=== PATIENT | male | born 1950 | race Caucasian/White ===

== ENCOUNTER 2022-09-30 07:38 | Inpatient (IN) ==
--- NOTE | 2022-08-29 09:39 | PAT Medication Instructions ---
Medication Instructions Date of Service August 29, 2022 Home Medications acetaminophen 325 mg tablet 325 mg PO QID PRN alpha lipoic acid 600 mg tablet 600 mg PO QAM atorvastatin 40 mg tablet 40 mg PO HS carvedilol 25 mg tablet 25 mg PO BID cholecalciferol (vitamin D3) 25 mcg (1,000 unit) tablet (Vitamin D3) 50 mcg PO QAM dutasteride 0.5 mg capsule 0.5 mg PO QPM empagliflozin 25 mg tablet (Jardiance) 25 mg PO QAM hydrochlorothiazide 25 mg tablet 25 mg PO QAM lisinopril 20 mg tablet 20 mg PO QAM metformin 500 mg tablet 1,000 mg PO BID omega-3 fatty acids 1,000 mg PO TID oxycodone 5 mg tablet 5 mg PO Q8H PRN rivaroxaban 20 mg tablet (Xarelto) 20 mg PO PM saw palmetto 1 dose PO TID tamsulosin 0.4 mg capsule 0.4 mg PO QPM STOP 3 days before surgery empagliflozin 25 mg tablet (Jardiance) 25 mg PO QAM ASK your prescriber and surgeon rivaroxaban 20 mg tablet (Xarelto) 20 mg PO PM STOP taking 2 weeks before surgery (or as soon as possible if surgery is within 2 weeks) alpha lipoic acid 600 mg tablet 600 mg PO QAM omega-3 fatty acids 1,000 mg PO TID saw palmetto 1 dose PO TID DO NOT take the morning of surgery cholecalciferol (vitamin D3) 25 mcg (1,000 unit) tablet (Vitamin D3) 50 mcg PO QAM hydrochlorothiazide 25 mg tablet 25 mg PO QAM lisinopril 20 mg tablet 20 mg PO QAM metformin 500 mg tablet 1,000 mg PO BID Take morning of surgery With a small sip of water, OTHERWISE NOTHING TO EAT OR DRINK AFTER MIDNIGHT: acetaminophen 325 mg tablet 325 mg PO QID PRN(if needed) carvedilol 25 mg tablet 25 mg PO BID oxycodone 5 mg tablet 5 mg PO Q8H PRN(if needed) Take evening before surgery acetaminophen 325 mg tablet 325 mg PO QID PRN(if needed) atorvastatin 40 mg tablet 40 mg PO HS carvedilol 25 mg tablet 25 mg PO BID dutasteride 0.5 mg capsule 0.5 mg PO QPM metformin 500 mg tablet 1,000 mg PO BID oxycodone 5 mg tablet 5 mg PO Q8H PRN(if needed) tamsulosin 0.4 mg capsule 0.4 mg PO QPM Other Notes If you have any questions please call us at [phone] or [phone] or [phone] or [phone]
--- NOTE | 2022-09-02 14:38 | Anesthesiology Consultation ---
Date of Service September 02, 2022 Assessment & Plan (1) Encounter for pre-operative examination: - check BSG am DOS. - will attempt to obtain most recent cardiology note and surgeon ordered clearance. Chart Review Chart Review: Pending: Refer to Additional Notes / Consult section and Patient seen in Pre Admission Testing Teaching & Discussion Pre-Anesthesia Teaching/Discussion Notes: Instructed NPO after midnight before surgery, except medications with 15 cc of water. Medication instructions provided according to the PAT guidelines. History Surgery Operation Date: 09/23/22 07:45 Proposed Procedures p L1-L2 Decompression, T12-L3 Fusion, L2 Hardware Removal, Spinal Cord Mon virgilio Pryor, Height/Weight Height: 5 ft 11 in Weight: 115.666 kg Allergies Allergy/AdvReac Type Severity Reaction Status Date / Time semaglutide [From Ozempic] AdvReac Gastrointestinal Verified 08/28/22 10:04 Upset Medications Home Medications Medication Instructions Recorded Confirmed Last Taken acetaminophen 325 mg tablet 325 mg PO QID PRN Pain 08/28/22 08/28/22 Unknown alpha lipoic acid 600 mg tablet 600 mg PO QAM 08/28/22 08/28/22 Unknown atorvastatin 40 mg tablet 40 mg PO HS 08/28/22 08/28/22 Unknown carvedilol 25 mg tablet 25 mg PO BID 08/28/22 08/28/22 Unknown cholecalciferol (vitamin D3) 25 50 mcg PO QAM 08/28/22 08/28/22 Unknown mcg (1,000 unit) tablet (Vitamin D3) dutasteride 0.5 mg capsule 0.5 mg PO QPM 08/28/22 08/28/22 Unknown empagliflozin 25 mg tablet 25 mg PO QAM 08/28/22 08/28/22 Unknown (Jardiance) hydrochlorothiazide 25 mg tablet 25 mg PO QAM 08/28/22 08/28/22 Unknown lisinopril 20 mg tablet 20 mg PO QAM 08/28/22 08/28/22 Unknown metformin 500 mg tablet 1,000 mg PO BID 08/28/22 08/28/22 Unknown omega-3 fatty acids 1,000 mg PO TID 08/28/22 08/28/22 Unknown oxycodone 5 mg tablet 5 mg PO Q8H PRN Pain 08/28/22 08/28/22 Unknown rivaroxaban 20 mg tablet (Xarelto) 20 mg PO PM 08/28/22 08/28/22 Unknown saw palmetto 1 dose PO TID 08/28/22 08/28/22 Unknown tamsulosin 0.4 mg capsule 0.4 mg PO QPM 08/28/22 08/28/22 Unknown insulin detemir U-100 100 unit/mL 34 unit subcut HS 09/02/22 09/02/22 Unknown (3 mL) subcutaneous pen (Levemir FlexPen) Past Medical History Medical History (Updated 09/02/22 @ 14:57 by Carmen Jimenez PA-C) Atrial fibrillation on Xarelto. Follows with Dr. Santacruz BPH (benign prostatic hyperplasia) CKD (chronic kidney disease), stage I following with [facility] DM type 2 (diabetes mellitus, type 2) IDDM History of cardioversion History of DVT (deep vein thrombosis) RLE x 2. > 10 years ago. dx'd protein S def. on xarelto History of migraine HLD (hyperlipidemia) [place] (hard of hearing) HTN (hypertension) Protein S deficiency Sleep apnea CPAP-compliant Spinal stenosis Urine protein increased Patient denies h/o stroke, seizures, heart attack, heart failure, or blood transfusions. Exercise / Class Metabolic Activity II 4-5 Yardwork/Stairs/Walk up hill (denies chest discomfort or shortness of breath with 1 FOS) Past Family History Family History Other No family history of adverse response to anesthesia Past Surgical History Surgical History History of back surgery x 2 History of cataract surgery History of colonoscopy History of esophagogastroduodenoscopy (EGD) History of rotator cuff surgery Rt History of tonsillectomy Past Anesthesia History No Hx of Anesthesia Complications and No Family Hx of Anesthesia Complications History of PONV No Hx of PONV and No Hx of Motion Sickness Social History Smoking Status: Former smoker Do You Dip or Chew Tobacco: No (quit many years ago) Smoking End Date: many years ago Hx Alcohol Use: No Hx Substance Use: No substance use type: does not use Review of Systems Patient denies chest pain, shortness of breath, dyspnea on exertion, reflux, fever, chills, cough, wheezing, or palpitations. Physical Exam Vital Signs Vitals BP 170/85 P 76 TEMP 98.6 SP02 96% on RA RESP 18 Physical Full cervical extension range of motion without pain TMD 3.5 finger breadths Mallampati Score 2 Dentition: intact, denies chipped or loose teeth, caps/crowns, implants or bridges Lungs: normal respiratory effort. Clear throughout to auscultation, no adventitious breath sounds Cardiac: irregularly irregular rhythm, normal rate, no murmurs noted Carotid arteries: negative bruit bilat Lab Results Anesthesia Preop Results Results Anesthesia Widget: WBC 7.44 K/ul (4.8-10.8) 09/02/22 Hgb 18.0 g/dl (14.0-18.0) 09/02/22 Hct 51.5 % (42.0-52.0) 09/02/22 Plt 186 K/uL (130-400) 09/02/22 Na 139 mmol/L (136-145) 09/02/22 K 4.0 mmol/L (3.5-5.1) 09/02/22 Cl 100 mmol/L (98-107) 09/02/22 CO2 34 mmol/L (21-32) H 09/02/22 BUN 17 mg/dl (6-23) 09/02/22 Creat 1.04 mg/dl (0.6-1.4) 09/02/22 Glucose Level 81 mg/dl (70-99(Fasting)) 09/02/22 PT 12.4 Seconds (9.0-12.0) H 09/02/22 PTT 33.3 Seconds (21.0-31.0) H 09/02/22 INR 1.2 (0.9-1.1) H 09/02/22 Urine Color Yellow 09/02/22 Urine Appearance Clear (Clear) 09/02/22 Urine pH 7.5 (4.5-7.5) 09/02/22 Urine Specific [place] 1.030 (1.000-1.030) 09/02/22 Urine Protein 3+ (Negative) H 09/02/22 Urine Glucose (UA) 3+ (Negative) H 09/02/22 Urine Ketones Trace (Negative) H 09/02/22 Urine Blood Negative (Negative) 09/02/22 Urine Nitrite Negative (Negative) 09/02/22 Urine Bilirubin Negative (Negative) 09/02/22 Urine Urobilinogen Negative (Negative) 09/02/22 Urine Leukocyte Esterase Negative (Negative) 09/02/22 Urine WBC (Auto) 1-5 /hpf (0-5) 09/02/22 Urine RBC (Auto) 5-10 /hpf (0-4) H 09/02/22 Urine Hyaline Casts (Auto) 0 /lpf (0-5) 09/02/22 Urine Epithelial Cells (Auto) 5-10 /lpf (0-5) H 09/02/22 Urine Bacteria (Auto) Negative (Negative) 09/02/22 Blood Type O Negative 09/02/22 Antibody Screen NEGATIVE 09/02/22 Testing Laboratory Results A1c 6.5% 07/31/22 Electrocardiogram Date: 09/02/22 Afib, rate 76 bpm Left anterior fascicular block LVH with QRS widening Chest X-Ray Date: 09/02/22 The heart is enlarged noting atherosclerotic calcification of the thoracic aorta. The pulmonary vasculature is noncongested. Chronic interstitial thickening similar to previous. The lungs and pleural spaces are clear. There is no pneumothorax. The skeletal structures are osteopenic. The bony thorax appears intact. Degenerative change is noted in the thoracic spine. Fusion hardware is partially visualized in the lumbar region. IMPRESSION: Cardiomegaly with no active disease in the chest. Echocardiogram Date: 06/11/21 EF 55% Afib Mildly dilated LA Mildly thickened aortic valve, trileaflet COVID-19 Risk Screen Screening Information COVID-19 Screen Date: 09/02/22 Exposure 21 Days Family/Household +COVID Last 21 Days: No Exposure 10 Days Any COVID Exposure Last 10 Days: No Symptoms Last 10 Days Experienced COVID Sx Last 10 Days: No + COVID 0-90 Days COVID + in Last 0-90 Days: No
--- NOTE | 2022-09-02 14:47 | PAT Medication Instructions ---
Medication Instructions Date of Service September 02, 2022 Home Medications Medications acetaminophen 325 mg tablet 325 mg PO QID PRN Pain 08/28/22 [History Confirmed 08/28/22] alpha lipoic acid 600 mg tablet 600 mg PO QAM 08/28/22 [History Confirmed 08/28/22] atorvastatin 40 mg tablet 40 mg PO HS 08/28/22 [History Confirmed 08/28/22] carvedilol 25 mg tablet 25 mg PO BID 08/28/22 [History Confirmed 08/28/22] cholecalciferol (vitamin D3) 25 mcg (1,000 unit) tablet (Vitamin D3) 50 mcg PO QAM 08/28/22 [History Confirmed 08/28/22] dutasteride 0.5 mg capsule 0.5 mg PO QPM 08/28/22 [History Confirmed 08/28/22] empagliflozin 25 mg tablet (Jardiance) 25 mg PO QAM 08/28/22 [History Confirmed 08/28/22] hydrochlorothiazide 25 mg tablet 25 mg PO QAM 08/28/22 [History Confirmed 08/28/22] lisinopril 20 mg tablet 20 mg PO QAM 08/28/22 [History Confirmed 08/28/22] metformin 500 mg tablet 1,000 mg PO BID 08/28/22 [History Confirmed 08/28/22] omega-3 fatty acids 1,000 mg PO TID 08/28/22 [History Confirmed 08/28/22] oxycodone 5 mg tablet 5 mg PO Q8H PRN Pain 08/28/22 [History Confirmed 08/28/22] rivaroxaban 20 mg tablet (Xarelto) 20 mg PO PM 08/28/22 [History Confirmed 08/28/22] saw palmetto 1 dose PO TID 08/28/22 [History Confirmed 08/28/22] tamsulosin 0.4 mg capsule 0.4 mg PO QPM 08/28/22 [History Confirmed 08/28/22] Take morning of surgery With a small sip of water, OTHERWISE NOTHING TO EAT OR DRINK AFTER MIDNIGHT: Insulin Dependent Diabetic Patients * Test your blood sugar the morning of surgery * If Blood Sugar is GREATER THAN 150, take HALF of your regular dose of: * If Blood Sugar is LESS THAN 150, DO NOT TAKE ANY: Other Notes If you have any questions please call us at [phone] or [phone] or [phone] or [phone]
--- NOTE | 2022-09-02 14:56 | PAT Medication Instructions ---
Medication Instructions Date of Service September 02, 2022 Home Medications acetaminophen 325 mg tablet 325 mg PO QID PRN alpha lipoic acid 600 mg tablet 600 mg PO QAM atorvastatin 40 mg tablet 40 mg PO HS carvedilol 25 mg tablet 25 mg PO BID cholecalciferol (vitamin D3) 25 mcg (1,000 unit) tablet (Vitamin D3) 50 mcg PO QAM dutasteride 0.5 mg capsule 0.5 mg PO QPM empagliflozin 25 mg tablet (Jardiance) 25 mg PO QAM hydrochlorothiazide 25 mg tablet 25 mg PO QAM lisinopril 20 mg tablet 20 mg PO QAM metformin 500 mg tablet 1,000 mg PO BID omega-3 fatty acids 1,000 mg PO TID oxycodone 5 mg tablet 5 mg PO Q8H PRN rivaroxaban 20 mg tablet (Xarelto) 20 mg PO PM saw palmetto 1 dose PO TID tamsulosin 0.4 mg capsule 0.4 mg PO QPM insulin detemir U-100 100 unit/mL (3 mL) subcutaneous pen (Levemir FlexPen) 34 unit subcut HS STOP 3 days before surgery empagliflozin 25 mg tablet (Jardiance) 25 mg PO QAM ASK your prescriber and surgeon rivaroxaban 20 mg tablet (Xarelto) 20 mg PO PM STOP taking 2 weeks before surgery (or as soon as possible if surgery is within 2 weeks) alpha lipoic acid 600 mg tablet 600 mg PO QAM omega-3 fatty acids 1,000 mg PO TID saw palmetto 1 dose PO TID DO NOT take the morning of surgery cholecalciferol (vitamin D3) 25 mcg (1,000 unit) tablet (Vitamin D3) 50 mcg PO QAM hydrochlorothiazide 25 mg tablet 25 mg PO QAM lisinopril 20 mg tablet 20 mg PO QAM metformin 500 mg tablet 1,000 mg PO BID Take morning of surgery With a small sip of water, OTHERWISE NOTHING TO EAT OR DRINK AFTER MIDNIGHT: acetaminophen 325 mg tablet 325 mg PO QID PRN(if needed) carvedilol 25 mg tablet 25 mg PO BID oxycodone 5 mg tablet 5 mg PO Q8H PRN(if needed) Take evening before surgery acetaminophen 325 mg tablet 325 mg PO QID PRN(if needed) atorvastatin 40 mg tablet 40 mg PO HS carvedilol 25 mg tablet 25 mg PO BID dutasteride 0.5 mg capsule 0.5 mg PO QPM metformin 500 mg tablet 1,000 mg PO BID oxycodone 5 mg tablet 5 mg PO Q8H PRN(if needed) tamsulosin 0.4 mg capsule 0.4 mg PO QPM insulin detemir U-100 100 unit/mL (3 mL) subcutaneous pen (Levemir FlexPen) 34 unit subcut HS Other Notes If you have any questions please call us at [phone] or [phone] or [phone] or [phone]
[~2022-09-30 07:38] MED LIST: ACETAMINOPHEN 500 MG TAB PO SCH; BUPIVACAINE/EPINEPHRINE 0.25% 1:200,000 30 ML VIAL ONE; CeleBREX 200 MG CAP PO SCH; GABAPENTIN 300 MG CAP PO SCH; LR 15ML/HR IV SCH; MIDAZOLAM HCL 1 MG/ML 2ML VIAL ONE; ceFAZolin 330 MG/ML 1 GM VIAL ONE; fentaNYL citrate PF 100 MCG/2 ML VIAL ONE
[2022-09-30] MEDS ORDERED: ATROPINE SULFATE 0.1 MG/ML 10ML SYR IV PRN (09:34)
[2022-09-30] MEDS ORDERED: fentaNYL citrate PF 100 MCG/2 ML VIAL IV PRN (09:34)
[2022-09-30] MEDS ORDERED: ONDANSETRON INJ 2 MG/ML 2 ML VIAL IV PRN ×2 (09:34→14:49)
[2022-09-30] MEDS ORDERED: HYDROmorphone INJ 2 MG/ML SYR/VIAL IV PRN (09:34)
[2022-09-30] MEDS ORDERED: ePHEDrine sulfate 50 MG/ML AMP IV PRN (09:34)
--- NOTE | 2022-09-30 09:40 | History & Physical Bridge Note ---
Date of Service September 30, 2022 History & Physical Bridge Note I have examined the patient, reviewed the History & Physical and in the interval since the performance of the History & Physical I have noted the following changes of clinical significance: no changes noted
--- NOTE | 2022-09-30 09:41 | History & Physical Report ---
Date of Service September 30, 2022 Assessment & Plan (1) Neurogenic claudication due to lumbar spinal stenosis: Plan: L1-L2 decompression, T12 L3 fusion, L2 hardware removal History of Present Illness Chief Complaint: Back and leg pain Primary Care Provider: Indra Sawyer DO This is a 72-year-old male known to me the presents with chronic persistent back and leg pain after failing course of nonoperative care is here for surgical intervention. Allergies Allergy/AdvReac Type Severity Reaction Status Date / Time semaglutide [From Ozempic] AdvReac Gastrointestinal Verified 09/30/22 08:07 Upset Home Medications Medication Instructions Recorded Confirmed Type acetaminophen 325 mg tablet 325 mg PO QID PRN Pain 08/28/22 09/30/22 History alpha lipoic acid 600 mg tablet 600 mg PO QAM 08/28/22 09/30/22 History atorvastatin 40 mg tablet 40 mg PO HS 08/28/22 09/30/22 History carvedilol 25 mg tablet 25 mg PO BID 08/28/22 09/30/22 History cholecalciferol (vitamin D3) 25 50 mcg PO QAM 08/28/22 09/30/22 History mcg (1,000 unit) tablet (Vitamin D3) dutasteride 0.5 mg capsule 0.5 mg PO QPM 08/28/22 09/30/22 History empagliflozin 25 mg tablet 25 mg PO QAM 08/28/22 09/30/22 History (Jardiance) hydrochlorothiazide 25 mg tablet 25 mg PO QAM 08/28/22 09/30/22 History lisinopril 20 mg tablet 20 mg PO QAM 08/28/22 09/30/22 History metformin 500 mg tablet 1,000 mg PO BID 08/28/22 09/30/22 History omega-3 fatty acids 1,000 mg PO TID 08/28/22 09/30/22 History oxycodone 5 mg tablet 5 mg PO Q8H PRN Pain 08/28/22 09/30/22 History rivaroxaban 20 mg tablet (Xarelto) 20 mg PO PM 08/28/22 09/30/22 History saw palmetto 1 dose PO TID 08/28/22 09/30/22 History tamsulosin 0.4 mg capsule 0.4 mg PO QPM 08/28/22 09/30/22 History insulin detemir U-100 100 unit/mL 34 unit subcut HS 09/02/22 09/30/22 History (3 mL) subcutaneous pen (Levemir FlexPen) Past Med/Surg History Medical History (Updated 09/30/22 @ 09:41 by Marc Pryor DO) Atrial fibrillation on Xarelto. Follows with Dr. Santacruz BPH (benign prostatic hyperplasia) CKD (chronic kidney disease), stage I following with [facility] DM type 2 (diabetes mellitus, type 2) IDDM History of cardioversion History of DVT (deep vein thrombosis) RLE x 2. > 10 years ago. dx'd protein S def. on xarelto History of migraine HLD (hyperlipidemia) [place] (hard of hearing) HTN (hypertension) Protein S deficiency Sleep apnea CPAP-compliant Spinal stenosis Urine protein increased Surgical History History of back surgery x 2 History of cataract surgery History of colonoscopy History of esophagogastroduodenoscopy (EGD) History of rotator cuff surgery Rt History of tonsillectomy Family History Other No family history of adverse response to anesthesia Social History Smoking Status: Former smoker Smoking End Date: many years ago; Second Hand Exposure: No; Do You Dip or Chew Tobacco: No (quit many years ago); Tobacco Cessation Education Requested by Patient: No Hx Alcohol Use: No Hx Substance Use: No Preferred Language: Belarusian Communication Ability: Effective Pig Handler Required: No Beliefs That Will Affect Care: None Current Living Situation: Spouse Feels Safe at Home: Yes Safety Concerns: Feels Safe At This Time Assistive Devices: Cane and Glasses Physical Exam Physical Exam: Patient is alert and oriented Heart regular rhythm Lungs clear Results & Data Results & Data ([facility]) Vital Signs (Past 12 Hours) Vital Signs Temp Pulse Resp BP Pulse Ox O2 Del Method 09/30/22 08:11 Room Air 09/30/22 08:11 36.5 C 88 16 185/118 H 95 Room Air
[2022-09-30] MEDS ORDERED: LIDOCAINE 2% MPF LOCAL 5 ML VIAL INFIL ONE (10:32)
[2022-09-30] MEDS ORDERED: ROCURONIUM BROMIDE 10 MG/ML 5 ML VIAL IV ONE ×2 (10:34→11:39)
[2022-09-30] MEDS ORDERED: PROPOFOL IV EMULSION 10 MG/ML 20 ML VIAL IV ONE (10:34)
[2022-09-30] MEDS ORDERED: ONDANSETRON INJ 2 MG/ML 2 ML VIAL ONE (10:35)
[2022-09-30] MEDS ORDERED: DEXAMETHASONE SOD INJ 4 MG/ML VIAL ONE (10:35)
[2022-09-30] MEDS ORDERED: fentaNYL citrate PF 100 MCG/2 ML VIAL ONE (10:39)
[2022-09-30] MEDS ORDERED: FLOSEAL HEMOSTATIC MATRIX 10ML TOP ONE ×2 (10:48→11:31)
[2022-09-30] MEDS ORDERED: NEOSTIGMINE METHYLSULFATE 1 MG/ML 10ML VIAL ONE (10:58)
[2022-09-30] MEDS ORDERED: GLYCOPYRROLATE 0.2 MG/ML VIAL ONE (10:58)
[2022-09-30] MEDS ORDERED: HYDROmorphone INJ 2 MG/ML SYR/VIAL ONE (11:26)
--- NOTE | 2022-09-30 12:53 | Operative Report ---
Post Operative Report Pre & Post Diagnosis Operation Date: 09/30/22 09:10 Pre-Op Diagnosis: Lumbar spinal stenosis with neurogenic claudication Post-Op Diagnosis: Same I identified the patient and participated in the time-out.: Yes Procedure Operation Date: 09/30/22 09:10 Actual Procedures #1 lumbar decompression bilateral medial facetectomies and foraminotomies T12-L1 L1-L2. #2 posterior spinal fusion T12-L2. #3 placement posterior instrumentation T12-L1 with connectors to L2-L3. #4 interbody fusion L1-L2. #5 placement of Spira 11 x 26 mm cage at L1-L2. #6 placement locally harvested morselized autograft in the posterior gutters. #7 placement of I factor combined with V toss in the interbody space and posterior lateral gutters. Surgeon Marc Pryor, DO Studio Set Up Worker Zahida Henao Estimated Blood Loss 400 Findings See Below The patient is 511 weighing over 119 kg with a BMI in excess of 36. The patient's body habitus did contribute to significant technical difficulty required deeper retractors and longer instruments in order to perform his procedure. This had at least 50% increased operative time. Specimens None Indications This is a 72-year-old male who presents above-mentioned diagnosis after failed course of nonoperative care is here for surgical invention. Description of Procedure Patient was met with identified informed consent obtained. Patient was then taken to the operative suite underwent a patient placed in a prone position on the Eloy table top of the Charles frame. All bony prominences well-padded eyes inspected to ensure no external pressure placed upon the. This point the thoracolumbar spine was prepped and draped in a sterile fashion. Sharp dissection with the assistance of Bovie cautery was performed down to and exposing the lamina and transverse processes of T12-L1 and instrumentation at L2-L3. Then performed a complete laminectomy of L1 partial laminectomy of L2 including bilateral medial facetectomies and foraminotomies addressing severe spinal stenosis. Pedicle screws were then placed in T12 and L1 and by way of a transforaminal approach on the left complete discectomy of L1-L2 was performed endplates curetted to subcortical any bone and a 11 x 26 mm spiral cage with I factor tapped in position. The proper size rods were then contoured and locked into place bilaterally. I did place connectors on the rods between L2 and L3. The transverse processes of T12 L1-L2 were then burred to subcortically bone. I factor bone of the test and locally harvested morselized autograft was placed in the posterior lateral gutters. 15 round SERGE drain inserted. The incision was then closed with 1 Vicryl the fascia 2-0 Vicryl subcutaneously and 4 Monocryl for final skin closure. Steri-Strips dressings placed. Patient waken taken to PACU stable condition. Please note spinal cord monitoring was utilized at the procedure no changes noted. Lastly Khushboo Porter was present at the entire procedure involved the patient positioning complex portion of the surgery and final skin closure. I attest to the content of the Intraoperative Record and any orders documented therein. Any exceptions are noted below.
--- NOTE | 2022-09-30 13:22 | XRay Report ---
KUB HISTORY: Missing surgical needle IN OR, MISSING NEEDLE COMPARISON: Fluoroscopic images of the lumbar spine of same day FINDINGS: 7 total images were submitted. Posterior interbody jovany and screw fusion hardware with disce ctomy changes. Catheter type device overlying the surgical bed is noted. No retained needle device id entified. IMPRESSION: Postoperative films as above. ACT 112: Negative or not required by law. The above report was generated using voice recognition software. It may contain grammatical, syntax o r spelling errors. Electronically signed by: Diego Lu M.D. 09/30/2022 1:21 PM
--- NOTE | 2022-09-30 14:00 | Fluoroscopy Report ---
FL lumbar spine 2-3V CLINICAL HISTORY: T12-L3 DFI/L2 HR COMPARISON STUDY: 06/16/2015 FLUOROSCOPY TIME: 20.4 seconds FLUOROSCOPY IMAGES: 3 EXPOSURE DOSE: 17.34 mGy FINDINGS: Posterior interbody jovany and screw fusion hardware is noted within the thoracolumbar spine, exact numbering is difficult based on magnification. Multilevel discectomy changes. Visualized hardwa re appears intact. No unexpected opaque foreign bodies identified. IMPRESSION: Fluoroscopic assistance as above. ACT 112: Negative or not required by law. Electronically signed by: Diego Lu M.D. 09/30/2022 1:58 PM
--- NOTE | 2022-09-30 14:45 | Anesthesiology Progress Note ---
Date of Service September 30, 2022 Anesthesia Post Procedure Vital Signs Vital Signs: Temp Pulse Pulse Resp BP Pulse Ox O2 Del Method 09/30/22 14:05 83 19 171/78 H 96 Oxymask 09/30/22 13:55 80 16 174/96 H 97 Oxymask 09/30/22 14:20 98.4 F 87 15 160/85 H 96 Nasal Cannula 09/30/22 13:45 88 17 178/112 H 96 Oxymask 09/30/22 13:35 100.6 F H 82 20 133/91 95 Oxymask 09/30/22 08:11 Room Air 09/30/22 08:11 97.7 F 88 16 185/118 H 95 Room Air O2 Flow Rate 09/30/22 14:05 5 09/30/22 13:55 5 09/30/22 14:20 3 09/30/22 13:45 7 09/30/22 13:35 7 09/30/22 08:11 09/30/22 08:11 Pain Intensity Bilateral Lower Back: Pain Intensity: 0 Transfer of Care Handoff Completed per policy Notes Mental Status: alert / awake / arousable and participated in evaluation Patient Amnestic to Procedure: Yes Nausea / Vomiting: adequately controlled Pain: adequately controlled Airway Patency, RR, SpO2: stable & adequate BP & HR: stable & adequate Hydration State: stable & adequate Anesthetic Complications: no major complications apparent and Pt Satisfied with anesthetic care
[2022-09-30] MEDS ORDERED: ACETAMINOPHEN 325 MG TAB PO PRN (14:49)
[2022-09-30] MEDS ORDERED: METOCLOPRAMIDE HCL INJ 5 MG/ML 2 ML VIAL IV PRN (14:49)
[2022-09-30] MEDS ORDERED: traMADol HCL 50 MG TABLET PO PRN (14:49)
[2022-09-30] MEDS ORDERED: ACETAMINOPHEN 500 MG TAB PO PRN (14:49)
[2022-09-30] MEDS ORDERED: hydrOXYzine HCl 25 MG TAB PO PRN (14:49)
[2022-09-30] MEDS ORDERED: ALUMINUM/MAGNESIUM SUSP 30 ML UDC PO PRN (14:49)
[2022-09-30] MEDS ORDERED: PHARMACY GLYCEMIC MGMT CONSULT PRN (14:49)
[2022-09-30] MEDS ORDERED: PROMETHAZINE HCL 12.5 MG in SODIUM CHLORIDE 0.9% 50 ML IV PRN (14:49)
[2022-09-30] MEDS ORDERED: NALOXONE HCL 0.4 MG/1 ML VIAL/CARP IV PRN (14:49)
[2022-09-30] MEDS ORDERED: FAMOTIDINE 20 MG TAB PO PRN (14:49)
[2022-09-30] MEDS ORDERED: bisacodyL 10 MG SUPP PR PRN (14:49)
[2022-09-30] MEDS ORDERED: DO NOT ADMINISTER FLU VACCINE PRN (14:49)
[2022-09-30] MEDS ORDERED: SODIUM CHLORIDE 0.9% 1000ML 1,000 ML IV SCH (14:49)
[2022-09-30] MEDS ORDERED: LORazepam 2 MG/1 ML VIAL IV PRN (14:49)
[2022-09-30] MEDS ORDERED: ACETAMINOPHEN 1,000 MG/100 ML VIAL IV PRN (14:49)
[2022-09-30] MEDS ORDERED: ONDANSETRON 4 MG OD TAB PO PRN (14:49)
[2022-09-30] MEDS ORDERED: SOD PHOSPHATE/SOD BIPHOSPHATE ENEMA 132 ML BTL PR PRN (14:49)
[2022-09-30] MEDS ORDERED: MAGNESIUM HYDROXIDE SUSP 30 ML UDC PO PRN (14:49)
[2022-09-30] MEDS ORDERED: LORazepam 0.5 MG TAB PO PRN (14:49)
[2022-09-30] MEDS ORDERED: diphenhydrAMINE Capsule 25 MG CAP PO PRN (14:49)
[2022-09-30] MEDS ORDERED: DO NOT ADMINISTER PNEUMOCOCCAL VACCINE PRN (14:49)
[2022-09-30] MEDS: HYDROmorphone INJ 0.5 MG/0.5 ML SYR IV PRN ×2 (16:08→22:15)
--- NOTE | 2022-09-30 17:03 | Hospitalist Consultation ---
Date of Consultation September 30, 2022 Assessment & Plan (1) Neurogenic claudication due to lumbar spinal stenosis: POD #0 - T12-L2 decompression and fusion - Pain control, PT/OT per primary team - Pt on Xarelto as outpatient due to afib and hx DVT/Protein S deficiency - resume once okay with primary service - Encourage incentive spirometry - Labs in AM - monitor for post-op anemia (EBL 400 ml) (2) HTN (hypertension): BP has been markedly elevated since arrival to the floor - pt has not had his BP meds since yesterday - Will give lisinopril 20 mg x 1 dose now and monitor - Resume Coreg this evening as well - Usual home meds starting tomorrow - Will ask sculpture conservator to f/u on pt's BP later this evening and order additional prn medications if needed (3) DM type 2 (diabetes mellitus, type 2): Pharmacy consulted for glycemic management (4) Permanent atrial fibrillation: Rate controlled on carvedilol On chronic AC - see #1 (5) Sleep apnea: Pt brought his CPAP from home, knows settings - Placed order for pt to use home CPAP machine while admitted (6) Diabetic peripheral neuropathy: (7) Dyslipidemia: (8) BPH (benign prostatic hyperplasia): (9) Protein S deficiency: Plan Pt seen and reviewed with collaborating physician, Dr. River. Plan of care discussed and as outlined above. Thank you for this consultation. We will continue to follow the patient with you. A member of the [facility] team is available 17/02 via [employer]. Please don't hesitate to reach out with questions. Randy Jamison PA-C Supervising Physician Co-Signing Physician Notes Patient was seen and examined independently. Chart reviewed. Resume home medications. Check BMP in morning to monitor lytes and renal function. History of Present Illness Reason for Consultation: Post-operative medical management Requesting Physician: Dr. Marc Pryor Attending Physician: Marc Pryor DO History of Present Illness This is a 72 y/o male with a PMH of insulin-dependent DM (last A1c on 07/31/22 was 6.5), permanent atrial fibrillation, Protein S deficiency with prior hx of DVT, chronic anticoagulation with Xarelto, DAISY on CPAP, CKD1, HTN, aortic stenosis, MGUS, diabetic peripheral neuropathy,hyperlipidemia, and spinal stenosis who underwent lumbar decompression and fusion T12-L2 today. We have been consulted to assist with post-operative medical management. Upon seeing the patient, nursing staff notified me that pt's BP has been elevated since he arrived on the floor with most recent taken while I was in the room being 182/120. Pt reports that his BPs at home are variable depending on his diet and have been as high as 170/90s in the last several weeks. He reports that his back pain is currently well-controlled as long as he doesn't move around too much. However, he has not had any of his BP medications since at least yesterday. He denies chest pain, palpitations, MOREJON, dizziness, visual changes. He does have a history of atrial fibrillation that is rate-controlled on Coreg BID. He is on chronic AC with Xarelto due to afib and hx of DVT, Protein S deficiency. This has also been on hold for the surgery. His blood sugars are typically well-controlled (<200) and he denies any recent unexplained elevations. He has chronic peripheral neuropa thy. He has had ongoing issues with his back for years with two prior surgical procedures, most recent in 2014. His pain has particularly worsened over the last 2-3 months and has been radiating down his left leg. The leg has not given out but has felt weak. Post-operatively he has noted improvement in the leg pain. Allergies Allergy/AdvReac Type Severity Reaction Status Date / Time semaglutide [From Ozempic] AdvReac Gastrointestinal Verified 09/30/22 08:07 Upset Home Medications Medication Instructions Recorded Confirmed Type acetaminophen 325 mg tablet 325 mg PO QID PRN Pain 08/28/22 09/30/22 History alpha lipoic acid 600 mg tablet 600 mg PO QAM 08/28/22 09/30/22 History atorvastatin 40 mg tablet 40 mg PO HS 08/28/22 09/30/22 History carvedilol 25 mg tablet 25 mg PO BID 08/28/22 09/30/22 History cholecalciferol (vitamin D3) 25 50 mcg PO QAM 08/28/22 09/30/22 History mcg (1,000 unit) tablet (Vitamin D3) dutasteride 0.5 mg capsule 0.5 mg PO QPM 08/28/22 09/30/22 History empagliflozin 25 mg tablet 25 mg PO QAM 08/28/22 09/30/22 History (Jardiance) hydrochlorothiazide 25 mg tablet 25 mg PO QAM 08/28/22 09/30/22 History lisinopril 20 mg tablet 20 mg PO QAM 08/28/22 09/30/22 History metformin 500 mg tablet 1,000 mg PO BID 08/28/22 09/30/22 History omega-3 fatty acids 1,000 mg PO TID 08/28/22 09/30/22 History oxycodone 5 mg tablet 5 mg PO Q8H PRN Pain 08/28/22 09/30/22 History rivaroxaban 20 mg tablet (Xarelto) 20 mg PO PM 08/28/22 09/30/22 History saw palmetto 1 dose PO TID 08/28/22 09/30/22 History tamsulosin 0.4 mg capsule 0.4 mg PO QPM 08/28/22 09/30/22 History insulin detemir U-100 100 unit/mL 34 unit subcut HS 09/02/22 09/30/22 History (3 mL) subcutaneous pen (Levemir FlexPen) oxycodone 5 mg tablet 5 mg PO Q6H PRN pain, severe #30 10/01/22 Rx tabs tramadol 50 mg tablet 50 mg PO Q6H PRN pain, moderate 10/01/22 Rx #30 tabs Patient History Medical History (Updated 09/30/22 @ 17:48 by Susan Jamison PA-C) Aortic stenosis Atrial fibrillation on Xarelto. Follows with Dr. Santacruz BPH (benign prostatic hyperplasia) CKD (chronic kidney disease), stage I following with [facility] Diabetic peripheral neuropathy DM type 2 (diabetes mellitus, type 2) IDDM History of cardioversion x2 History of DVT (deep vein thrombosis) RLE x 2. > 10 years ago. dx'd protein S def. on xarelto History of migraine HLD (hyperlipidemia) [place] (hard of hearing) HTN (hypertension) MGUS (monoclonal gammopathy of unknown significance) Permanent atrial fibrillation Protein S deficiency Sleep apnea CPAP-compliant Spinal stenosis Urine protein increased Surgical History History of back surgery x 2 History of cataract surgery History of colonoscopy History of esophagogastroduodenoscopy (EGD) History of rotator cuff surgery Rt History of tonsillectomy Family History (Updated 09/30/22 @ 17:01 by Susan Jamison PA-C) Mother Stroke Brother Stroke Sister Stroke Other No family history of adverse response to anesthesia Social History Smoking Status: Former smoker Smoking End Date: many years ago; Second Hand Exposure: No; Do You Dip or Chew Tobacco: No; Tobacco Cessation Education Requested by Patient: No Hx Alcohol Use: No Hx Substance Use: No Preferred Language: Burkinan Communication Ability: Effective Field Rep Required: No Beliefs That Will Affect Care: None Current Living Situation: Spouse Feels Safe at Home: Yes Safety Concerns: Feels Safe At This Time Assistive Devices: Cane, CPAP and Walker Review of Systems Review of Systems: All systems reviewed & are unremarkable except as noted in HPI & below Constitutional: no fever and no chills Eyes: no diplopia and no worsening vision Ear, Nose, Mouth, Throat: no nasal congestion and no sore throat Respiratory: no cough and no dyspnea Cardiovascular: no chest pain, no palpitations, no syncope and no edema Gastrointestinal: no abdominal pain, no nausea and no vomiting Genitourinary: no dysuria or no hematuria Musculoskeletal: as per Subjective / HPI Integumentary: no rash and no yellowing of the skin Neurologic: + problem reported (chronic peripheral neuropathy) Psychiatric: no depression and no anxiety Physical Exam Constitutional: well developed and well nourished; no acute distress Eyes: + anicteric sclerae ENMT: external ear and nose normal, oropharynx normal Neck: trachea midline Respiratory: no respiratory distress and no labored breathing Auscultation: lungs clear to auscultation bilaterally; no rales, no rhonchi and no wheezes Cardiovascular: Rate/Rhythm: + irregularly irregular Vessels: dorsalis pedis pulses present and radial pulses present Extremities: no pedal edema Gastrointestinal (Abdomen): Inspection/Auscultation: normal bowel sounds; abdomen not distended Percussion/Palpation: abdomen soft; abdomen nontender Musculoskeletal: Head/Neck/Chest: normocephalic and head atraumatic Skin: no jaundice Neurologic: moves all extremities; no focal motor deficits diminished sensation in feet - unchanged from baseline per pt Psychiatric: A+Ox3, euthymic affect Results & Data Results & Data ([facility]) Vital Signs (Past 12 Hours) Vital Signs Temp Pulse Pulse Resp BP Pulse Ox O2 Del Method 09/30/22 14:05 83 19 171/78 H 96 Oxymask 09/30/22 13:55 80 16 174/96 H 97 Oxymask 09/30/22 14:20 36.9 C 87 15 160/85 H 96 Nasal Cannula 09/30/22 13:45 88 17 178/112 H 96 Oxymask 09/30/22 13:35 38.1 C H 82 20 133/91 95 Oxymask 09/30/22 08:11 Room Air 09/30/22 08:11 36.5 C 88 16 185/118 H 95 Room Air O2 Flow Rate 09/30/22 14:05 5 09/30/22 13:55 5 09/30/22 14:20 3 09/30/22 13:45 7 09/30/22 13:35 7 09/30/22 08:11 09/30/22 08:11 Laboratory Results 09/30/22 09/30/22 09/30/22 07:55 08:01 08:25 POC Glucose 114 H SARS-CoV-2, RNA, NAAT NEGATIVE Blood Type O Negative Antibody Screen NEGATIVE Crossmatch See Detail 09/30/22 13:48 POC Glucose 133 H SARS-CoV-2, RNA, NAAT Blood Type Antibody Screen Crossmatch Medications Administered Acetaminophen (Acetaminophen 500 Mg Tab) 1,000 mg PO PREOP TIARA Stop: 09/30/22 18:00 Last Admin: 09/30/22 08:22 Dose: 1,000 mg Documented By: ALLIE Celecoxib (Celebrex 200 Mg Cap) 200 mg PO PREOP TIARA Stop: 09/30/22 18:00 Last Admin: 09/30/22 08:22 Dose: 200 mg Documented By: ALLIE Gabapentin (Gabapentin 300 Mg Cap) 300 mg PO PREOP TIARA Stop: 09/30/22 18:00 Last Admin: 09/30/22 08:22 Dose: 300 mg Documented By: ALLIE Hydromorphone HCl (Hydromorphone Inj 0.5 Mg/0.5 Ml Syr) 0.5 mg IV Q3H PRN PRN Reason: MODERATE Pain (Scale 4,5,6) & Pre PT Stop: 10/14/22 14:48 Last Admin: 09/30/22 16:08 Dose: 0.5 mg Documented By: TLRobert Lactated Ringer's (Lr) 1,000 mls @ 15 mls/hr IV .Q24H [facility] Stop: 10/01/22 05:59 Last Infusion: 09/30/22 10:08 Dose: 0 mls/hr Documented By: Admin: 09/30/22 08:32 Dose: 15 mls/hr Documented By: ALLIE Cefazolin Sodium (Ancef 3000mg) 72.5 mls @ 130 mls/hr IV PREOP TIARA; Protocol Stop: 09/30/22 18:00 Last Infusion: 09/30/22 15:00 Dose: 0 mls/hr Documented By: Admin: 09/30/22 10:08 Dose: 130 mls/hr Documented By: [id number] Sodium Chloride (Nss 1000ml) 1,000 mls @ 150 mls/hr IV .Q6H40M [facility] Stop: 10/30/22 14:48 Last Admin: 09/30/22 16:28 Dose: 150 mls/hr Documented By: SAMREEN Acetaminophen (Ofirmev) 1,000 mg in 100 mls @ 400 mls/hr IV Q8H PRN PRN Reason: Pain Rating 1-3 & Pre PT Stop: 10/01/22 14:51 Last Admin: 09/30/22 16:31 Dose: 400 mls/hr Documented By: SAMREEN Discontinued Medications Bupivacaine HCl/Epinephrine Bitart (Bupivacaine/Epinephrine 0.25% 1:200,000 30 Ml Vial) Confirm Administered Dose 30 ml .ROUTE .STK-MED ONE Stop: 09/30/22 07:39 Last Admin: 09/30/22 11:31 Dose: 20 ml Documented By: ANA MARÍA Cefazolin Sodium (Cefazolin 330 Mg/Ml 1 Gm Vial) Confirm Administered Dose 990 mg .ROUTE .STK-MED ONE Stop: 09/30/22 07:39 Last Admin: 09/30/22 10:56 Dose: 990 mg Documented By: ANA MARÍA Miscellaneous ( Floseal Hemostatic Matrix 10ml) 10 ml TOP ONCE ONE Stop: 09/30/22 10:49 Last Admin: 09/30/22 10:56 Dose: 10 ml Documented By: GMMagnus Miscellaneous ( Floseal Hemostatic Matrix 10ml) 10 ml TOP ONCE ONE Stop: 09/30/22 11:32 Last Admin: 09/30/22 11:32 Dose: 10 ml Documented By: ANA MARÍA
[2022-09-30] MEDS ORDERED: lisinopril 20 MG TAB PO STA (17:21)
[2022-09-30] MEDS: carvediloL 25 MG TAB PO SCH (18:02)
[2022-09-30] MEDS: ceFAZolin 2000MG 2,000 MG/15 ML SYR IV SCH (18:04)
[2022-09-30] MEDS: oxyCODONE HCL IR 5 MG TAB (IMMEDIATE RELEASE) PO PRN ×2 (18:15→23:35)
[2022-09-30] MEDS: INSULIN ASPART PER UNIT CHARGE SC SCH ×2 (18:16→21:25)
[2022-09-30] MEDS ORDERED: LANTUS PER UNIT CHARGE SQ SCH (21:00)
[2022-09-30] MEDS ORDERED: NON-FORMULARY MEDICATION (Dutasteride 0.5 mg Capsule) PO SCH (21:00)
[2022-09-30] MEDS: DOCUSATE SODIUM/SENNA 50/8.6MG TAB PO SCH (21:04)
[2022-09-30] MEDS: ATORVASTATIN 40 MG TAB PO SCH (21:04)
[2022-09-30] MEDS: TAMSULOSIN HCL 0.4 MG CAP PO SCH (21:04)
[2022-09-30] MEDS ORDERED: SIMETHICONE 40 MG/0.6 ML 30ML PO STA (21:19)
[2022-09-30] MEDS ORDERED: cloNIDine HCL 0.1 MG TAB PO ONE (21:45)
[2022-09-30] MEDS ORDERED: COUGH DROP (SUGAR FREE) LOZ 24 LOZ/1 BOX BUCCAL ONE (23:32)
[2022-10-01] MEDS: ceFAZolin 2000MG 2,000 MG/15 ML SYR IV SCH (02:01)
[2022-10-01] MEDS: POLYETHYLENE (MIRALAX) 17 GM PACK PO SCH ×4 (06:11→21:03)
[2022-10-01 07:19] LABS: Basophils # (auto) 0.03 K/uL (0-0.2); Basophils % (auto) 0.3 %; Eosinophils # (auto) 0.03 K/uL (0-0.50); Eosinophils % (auto) 0.3 %; Hematocrit (blood only) 43.9 % (42.0-52.0); Hemoglobin 15.2 g/dl (14.0-18.0); Immature Granulocytes # (auto) 0.03 K/uL (0.01-0.20); Immature Granulocytes % (auto) 0.3 %; Lymphocytes # (auto) 0.95 K/uL (1.2-3.4); Lymphocytes % (auto) 9.8 %; Mean Corpuscular Hemoglobin 30.7 pg (25.0-34.0); Mean Corpuscular Hgb Conc 34.6 g/dL (32.0-36.0); Mean Corpuscular Volume 88.7 fL (80.0-100.0); Mean Platelet Volume 9.9 fL (9.4-12.4); Monocytes # (auto) 1.04 K/uL (0.11-0.59); Monocytes % (auto) 10.8 %; Neutrophils # (auto) 7.58 K/uL (1.40-6.50); Neutrophils % (auto) 78.5 %; Platelet Count 188 K/uL (130-400); RDW Coefficient of Variation 13.3 % (11.5-14.5); RDW Standard Deviation 43.2 fL (36.4-46.3); Red Blood Count 4.95 M/uL (4.70-6.10); White Blood Count 9.66 K/ul (4.8-10.8)
[2022-10-01] MEDS: carvediloL 25 MG TAB PO SCH ×2 (07:33→17:38)
[2022-10-01] MEDS: hydroCHLOROthiazide 25 MG TAB PO SCH (07:33)
[2022-10-01] MEDS: CHOLECALCIFEROL 1,000 UNITS 25 MCG TAB PO SCH (07:33)
[2022-10-01] MEDS: lisinopril 20 MG TAB PO SCH (07:33)
[2022-10-01 07:35] LABS: BUN Creatinine Ratio 21.1 (10-20); Calcium 9.1 mg/dl (8.5-10.1); Creatinine Clr Calc Pharmacy 114.2 ml/min; Est GFR (African American) 105.6 ml/min; Est GFR (Non-African American) 91.1 ml/min; Potassium 4.4 mmol/L (3.5-5.1)
[2022-10-01 07:42] LABS: Estimated Average Glucose 148 mg/dl; Hemoglobin A1C 6.8 % (4.5-5.6); Troponin I High Sensitivity 7.5 pg/ml (0-20)
[2022-10-01] MEDS: INSULIN ASPART PER UNIT CHARGE SC SCH ×4 (08:28→21:03)
[2022-10-01] MEDS ORDERED: EMPAGLIFLOZIN 25 MG TAB PO SCH (09:00)
--- NOTE | 2022-10-01 09:30 | Electrocardiogram Report ---
Test Reason : Blood Pressure : / mmHG Vent. Rate : 079 BPM Atrial Rate : 119 BPM P-R Int : 000 ms QRS Dur : 116 ms QT Int : 370 ms P-R-T Axes : 000 -61 -16 degrees QTc Int : 424 ms Atrial fibrillation Left anterior fascicular block Left ventricular hypertrophy with QRS widening Abnormal ECG When compared with ECG of 02-SEP-2022 15:08, No significant change was found Confirmed by Lopez Hooper ([id number]) on 10/01/2022 9:30:17 AM Referred By: Marc Pryor Confirmed By:Lopez Hooper
--- NOTE | 2022-10-01 10:57 | Orthopedic Progress Note ---
Date of Service October 01, 2022 Assessment & Plan (1) Neurogenic claudication due to lumbar spinal stenosis: Plan: At this time continue physical therapy monitor SERGE output hopefully discharge home in the next few days. Admission and Anticipated Discharge Date Admission Date: September 30, 2022 Subjective Back pain controlled leg pain markedly improved Physical Exam Physical Exam: Patient is in the chair at the bedside. Skin strength testing. Results & Data ([facility]) Vital Signs (Past 12 Hours) Vital Signs Temp Pulse Resp BP BP Pulse Ox O2 Del Method 10/01/22 08:00 Room Air 10/01/22 07:22 37.2 C 83 18 124/76 93 Room Air 10/01/22 02:02 36.8 C 87 15 153/88 H 94 Room Air 09/30/22 23:15 36.9 C 90 16 174/91 H 93 Room Air
[2022-10-01] MEDS: oxyCODONE HCL IR 5 MG TAB (IMMEDIATE RELEASE) PO PRN ×3 (11:24→23:37)
--- NOTE | 2022-10-01 14:43 | Hospitalist Progress Note ---
Date of Service October 01, 2022 Assessment & Plan (1) Neurogenic claudication due to lumbar spinal stenosis: Plan: Status post T12-L2 decompression and fusion / - Pain control, PT/OT per primary team - Encourage incentive spirometry (2) HTN (hypertension): Plan: Better BP control on home medications, will continue (3) DM type 2 (diabetes mellitus, type 2): Plan: Pharmacy consulted for glycemic management (4) Permanent atrial fibrillation: Plan: Rate controlled on carvedilol On chronic AC - see #1 (5) Sleep apnea: Plan: Pt brought his CPAP from home, knows settings - Placed order for pt to use home CPAP machine while admitted (6) Diabetic peripheral neuropathy: (7) Dyslipidemia: (8) BPH (benign prostatic hyperplasia): (9) Protein S deficiency: Plan: - Pt on Xarelto as outpatient due to afib and hx DVT/Protein S deficiency - resume once okay with primary service Plan Admission and Anticipated Discharge Date Admission Date: September 30, 2022 Subjective Patient is doing well. Tolerating diet. No BM yet BP is better Pain is well controlled Worked with PT today Physical Exam Physical Exam: sitting in chair, no acute distress, non toxic Respiratory: Breathing comfortably on room air, no wheezing/rhonchi/rales Cardiovascular: regular rate and rhythm, no murmurs/rubs Gastrointestinal (Abdomen): soft, non tender Musculoskeletal: no edema Neurologic: awake, alert, spontaneously moving extremities Results & Data Results & Data ([facility]) Vital Signs (Past 12 Hours) Vital Signs Temp Pulse Resp BP Pulse Ox O2 Del Method 10/01/22 14:38 37.2 C 84 18 118/70 94 Room Air 10/01/22 08:00 Room Air 10/01/22 07:22 37.2 C 83 18 124/76 93 Room Air
--- NOTE | 2022-10-01 14:55 | Pharmacy Report ---
Pharmacy Glycemic Short Note 2 - Date of Service October 01, 2022 - Glycemic Short BSG Results (Last 24 hours): 09/30/22 09/30/22 10/01/22 17:08 20:59 06:49 Glucose 140 H POC Glucose 143 H 114 H 10/01/22 10/01/22 08:18 12:10 Glucose POC Glucose 118 H 238 H OUTPATIENT ANTIDIABETIC REGIMEN: * Levemir 34 units SQ qHS * Metformin 1000mg PO BID * Jardiance 25mg PO daily * HbA1c: 6.8% (10/01/22) ASSESSMENT: * Mr Mancini is a 72yo diabetic M, POD #1 s/p spinal procedure yesterday w/ Dr Pryor. * Pt received dexamethasone pre-operatively, which generally leads to steroid- induced hyperglycemia. * Pt uses only basal insulin at home; was converted to basal/bolus insulin for admission. * Will continue to follow and adjust regimen as indicated. PLAN FOR INPATIENT GLYCEMIC CONTROL: * Hold outpatient oral diabetes medications * Basal insulin * Lantus 15 units SQ daily * Bolus insulin * NovoLog per scale ACHS or Q6hrs while NPO * Goal Range: Low 110 mg/dL - High 140 mg/dL * Correction Factor: 20 mg/dL/unit * Nutritional / Prandial insulin per carb ratio of 1 unit per 7 grams CHO consumed
[2022-10-01] MEDS ORDERED: LANTUS PER UNIT CHARGE SQ SCH (16:30)
[2022-10-01] MEDS ORDERED: LANTUS PER UNIT CHARGE SQ ONE (17:45)
[2022-10-01] MEDS: ATORVASTATIN 40 MG TAB PO SCH (20:58)
[2022-10-01] MEDS: DOCUSATE SODIUM/SENNA 50/8.6MG TAB PO SCH (20:59)
[2022-10-01] MEDS: TAMSULOSIN HCL 0.4 MG CAP PO SCH (20:59)
[2022-10-02] MEDS: POLYETHYLENE (MIRALAX) 17 GM PACK PO SCH ×4 (05:37→21:46)
[2022-10-02] MEDS: oxyCODONE HCL IR 5 MG TAB (IMMEDIATE RELEASE) PO PRN ×3 (05:37→19:46)
--- NOTE | 2022-10-02 08:12 | Orthopedic Progress Note ---
Date of Service October 02, 2022 Assessment & Plan (1) Neurogenic claudication due to lumbar spinal stenosis: Plan: At this time I did adjust his drain. Appears to be more functional. We will continue with physical therapy today monitor his progress and possible discharge home tomorrow. Admission and Anticipated Discharge Date Admission Date: September 30, 2022 Subjective Back pain controlled leg pain improved Physical Exam Physical Exam: Patient is constricted testing. Is comfortable. Results & Data ([facility]) Vital Signs (Past 12 Hours) Vital Signs Temp Pulse Resp BP Pulse Ox O2 Del Method 10/02/22 07:44 36.7 C 99 H 18 160/92 H 94 Room Air 10/01/22 20:44 37.4 C 86 16 116/72 94 Room Air
[2022-10-02] MEDS: CHOLECALCIFEROL 1,000 UNITS 25 MCG TAB PO SCH (08:34)
[2022-10-02] MEDS: hydroCHLOROthiazide 25 MG TAB PO SCH (08:35)
[2022-10-02] MEDS: carvediloL 25 MG TAB PO SCH ×2 (08:35→17:42)
[2022-10-02] MEDS: lisinopril 20 MG TAB PO SCH (08:35)
[2022-10-02] MEDS: INSULIN ASPART PER UNIT CHARGE SC SCH ×4 (08:37→21:46)
--- NOTE | 2022-10-02 12:04 | Hospitalist Progress Note ---
Date of Service October 02, 2022 Assessment & Plan (1) Neurogenic claudication due to lumbar spinal stenosis: Plan: Status post T12-L2 decompression and fusion 3 Pain control, PT/OT per primary team Encourage incentive spirometry (2) HTN (hypertension): Plan: BP elevated this a.m. was improved yesterday continue coreg, hctz, lisinopril possibly in setting of pain monitor closely, will have staff repeat bp now (3) DM type 2 (diabetes mellitus, type 2): Plan: Pharmacy consulted for glycemic management appreciate their management BSG 170s (4) Permanent atrial fibrillation: Plan: Rate controlled on carvedilol On chronic AC (5) Sleep apnea: Plan: Pt brought his CPAP from home, knows settings Placed order for pt to use home CPAP machine while admitted (6) Diabetic peripheral neuropathy: (7) Dyslipidemia: (8) BPH (benign prostatic hyperplasia): (9) Protein S deficiency: Plan: - Pt on Xarelto as outpatient due to afib and hx DVT/Protein S deficiency - resume once okay with primary service will need to discuss with Dr. Pryor prior to d/c when ot resume xarelto Thank you for this consultation. We will follow the patient with you during their hospital stay. You can reach a member of the [facility] Hospitalist Team 17/02 via hospitalist role on tiger text. A total of 30 minutes was spent with greater than 50% of that time personally viewing all current laboratory work and diagnostic imaging studies obtained in the ED. Additionally, I was able to view the patients past medication reconcili ation and history with direct visualization in the patients chart. Included in the time above, a portion of that time was spent assessing the patient while discussing and collaborating with specialists, if necessary, and making medical decision making on treatment plan. All of the above was collaborated with Dr. Jones. Please see addendum for further details. Plan Admission and Anticipated Discharge Date Admission Date: September 30, 2022 Supervising Physician Co-Signing Physician Notes Pt was seen and examined. Agreed with Esther WATSON exam, assessment and plan. Status post T12-L2 decompression and fusion 3/. No postop complication. Continue incentive spiromerty. continue PT/OT. Fall precaution. MD Karen Subjective Patient was seen and examined in room 303. Status post T12-L2 lumbar decompression fusion. Patient states his drain was repositioned this morning and is now draining appropriately and causing significantly less pain and pressure in his low back. He denies any radicular symptoms. He is tolerating appetite. Denies fever, chills, sweats, chest pain, shortness breath, nausea, vomiting, abdominal pain. He has not yet had a bowel movement and denies passing gas. Review of Systems Review of Systems: All systems reviewed & are unremarkable except as noted in HPI & below Physical Exam Physical Exam: Gen: WD/WN, NAD, A&O x3 HEENT: Normocephalic, atraumatic, conjunctivae moist, sclerae anicteric, mucous membranes moist. Lung: Clear to Auscultation bilaterally, no wheezes/rales/rhonchi Heart: Irregular rate, irregular rhythm, no murmurs, rubs, or gallops Abdomen: Soft, NT, ND +BS x 4 Extremities: Right lower extremity chronic edema at baseline per patient, lumbar dressing CDI, SERGE drain intact Skin: Warm, no rash, negative turgor. Results & Data Results & Data ([facility]) Vital Signs (Past 12 Hours) Vital Signs Temp Pulse Resp BP Pulse Ox O2 Del Method 10/02/22 07:44 36.7 C 99 H 18 160/92 H 94 Room Air Medications Administered Current Inpatient Medications Acetaminophen (Acetaminophen 500 Mg Tab) 1,000 mg PO Q8H PRN PRN Reason: MILD Pain Scale 1,2,3 & Pre PT Stop: 10/30/22 14:48 Al Hydrox/Mg Hydrox/Simethicone (Aluminum/Magnesium Susp 30 Ml Udc) 30 ml PO Q6H PRN PRN Reason: Dyspepsia Stop: 10/30/22 14:48 Last Admin: 09/30/22 21:19 Dose: 30 ml Atorvastatin Calcium (Atorvastatin 40 Mg Tab) 40 mg PO HS TIARA Stop: 10/30/22 20:59 Last Admin: 10/01/22 20:58 Dose: 40 mg Bisacodyl (Bisacodyl 10 Mg Supp) 10 mg ND DAILY PRN PRN Reason: Constipation Stop: 10/30/22 14:48 Carvedilol (Carvedilol 25 Mg Tab) 25 mg PO BIDM TIARA Stop: 10/30/22 16:59 Last Admin: 10/02/22 08:35 Dose: 25 mg Diphenhydramine HCl (Diphenhydramine Capsule 25 Mg Cap) 25 mg PO Q6H PRN PRN Reason: Allergic Rhinitis/Insomnia Stop: 10/30/22 14:48 Famotidine (Famotidine 20 Mg Tab) 20 mg PO Q12H PRN PRN Reason: Dyspepsia Stop: 10/30/22 14:48 Hydrochlorothiazide (Hydrochlorothiazide 25 Mg Tab) 25 mg PO [facility] Stop: 10/31/22 08:59 Last Admin: 10/02/22 08:35 Dose: 25 mg Hydromorphone HCl (Hydromorphone Inj 0.5 Mg/0.5 Ml Syr) 0.5 mg IV Q3H PRN PRN Reason: MODERATE Pain (Scale 4,5,6) & Pre PT Stop: 10/14/22 14:48 Last Admin: 09/30/22 22:15 Dose: 0.5 mg Hydroxyzine HCl (Hydroxyzine Hcl 25 Mg Tab) 25 mg PO Q8H PRN PRN Reason: Anxiety Stop: 10/30/22 14:48 Promethazine HCl 12.5 mg/ (Sodium Chloride) 50.5 mls @ 202 mls/hr IV Q6H PRN PRN Reason: Nausea &/or Vomiting Stop: 10/30/22 14:48 Influenza Virus Vaccine Quadrival (Do Not Administer Flu Vaccine) 1 each N/A PRN PRN PRN Reason: Notification Stop: 10/30/22 14:48 Insulin Aspart (Insulin Aspart Per Unit) 0 units SC [facility] Stop: 10/30/22 16:29 Last Admin: 10/02/22 12:23 Dose: 8 units Lisinopril (Lisinopril 20 Mg Tab) 20 mg PO [facility] Stop: 10/31/22 08:59 Last Admin: 10/02/22 08:35 Dose: 20 mg Lorazepam (Lorazepam 0.5 Mg Tab) 0.5 mg PO Q8H PRN PRN Reason: Sedation/Anxiety Stop: 10/30/22 14:48 Lorazepam (Lorazepam 2 Mg/1 Ml Vial) 0.5 mg IV Q8H PRN PRN Reason: Sedation/Anxiety Stop: 10/30/22 14:48 Magnesium Hydroxide (Magnesium Hydroxide Susp 30 Ml Udc) 30 ml PO Q24H PRN PRN Reason: Constipation Stop: 10/30/22 14:48 Last Admin: 10/02/22 12:02 Dose: 30 ml Metoclopramide HCl (Metoclopramide Hcl Inj 5 Mg/Ml 2 Ml Vial) 10 mg IV Q6H PRN PRN Reason: Nausea &/or Vomiting Stop: 10/30/22 14:48 Miscellaneous (Dutasteride 0.5 Mg Cap: Order Awaiting Action) 1 each N/A QS TIARA Stop: 10/31/22 00:00 Last Admin: 10/02/22 08:35 Dose: Not Given Miscellaneous Information (Pharmacy Glycemic Mgmt Consult) 1 each N/A UD PRN PRN Reason: Consult Stop: 10/30/22 14:48 Naloxone HCl (Naloxone Hcl 0.4 Mg/1 Ml Vial/Carp) 0.1 mg IV Q5M PRN PRN Reason: Oversedation/Resp depression Stop: 10/30/22 14:48 Ondansetron HCl (Ondansetron Inj 2 Mg/Ml 2 Ml Vial) 4 mg IV Q6H PRN PRN Reason: Nausea &/or Vomiting Stop: 10/30/22 14:48 Ondansetron HCl (Ondansetron 4 Mg Od Tab) 4 mg PO Q6H PRN PRN Reason: Nausea Stop: 10/30/22 14:48 Oxycodone HCl (Oxycodone Hcl Ir 5 Mg Tab (Immediate Release)) 5 - 10 mg PO Q4H PRN PRN Reason: Pain & Pre PT Stop: 10/14/22 14:48 Last Admin: 10/02/22 05:37 Dose: 10 mg Pneumococcal Polyvalent Vaccine (Do Not Administer Pneumococcal Vaccine) 1 each N/A PRN PRN PRN Reason: Notification Stop: 10/30/22 14:48 Polyethylene Glycol (Polyethylene (Miralax) 17 Gm Pack) 17 gm PO Q6 TIARA Stop: 10/31/22 05:59 Last Admin: 10/02/22 12:02 Dose: Not Given Senna/Docusate Sodium (Docusate Sodium/Senna 50/8.6mg Tab) 2 tab PO HS TIARA Stop: 10/30/22 20:59 Last Admin: 10/01/22 20:59 Dose: 2 tab Sodium Biphosphate/Sodium Phosphate (Sod Phosphate/Sod Biphosphate Enema 132 Ml Btl) 132 ml ND ONE PRN PRN Reason: Constipation Stop: 10/30/22 14:48 Tamsulosin HCl (Tamsulosin Hcl 0.4 Mg Cap) 0.4 mg PO QPM TIARA Stop: 10/30/22 20:59 Last Admin: 10/01/22 20:59 Dose: 0.4 mg Tramadol HCl (Tramadol Hcl 50 Mg Tablet) 50 - 100 mg PO Q4H PRN PRN Reason: Moderate-Severe pain & Pre PT Stop: 10/30/22 14:48 Vitamin D (Cholecalciferol 1,000 Units 25 Mcg Tab) 2,000 units PO QAM TIARA Stop: 10/31/22 08:59 Last Admin: 10/02/22 08:34 Dose: 2,000 units
[2022-10-02] MEDS ORDERED: LANTUS PER UNIT CHARGE SQ SCH (21:00)
[2022-10-02] MEDS: TAMSULOSIN HCL 0.4 MG CAP PO SCH (21:41)
[2022-10-02] MEDS: ATORVASTATIN 40 MG TAB PO SCH (21:41)
[2022-10-02] MEDS: DOCUSATE SODIUM/SENNA 50/8.6MG TAB PO SCH (21:42)
[2022-10-03] MEDS: oxyCODONE HCL IR 5 MG TAB (IMMEDIATE RELEASE) PO PRN ×2 (03:18→14:18)
[2022-10-03] MEDS: POLYETHYLENE (MIRALAX) 17 GM PACK PO SCH ×2 (05:12→12:53)
--- NOTE | 2022-10-03 07:48 | Discharge Summary ---
Date of Service October 03, 2022 Admission HPI Per Admitting Provider This is a 72-year-old male known to me the presents with chronic persistent back and leg pain after failing course of nonoperative care is here for surgical intervention. Discharge Data Consultations 09/30/22 14:49 Consult Hospitalist Routine Procedures Performed Operation Date: 09/30/22 09:10 Actual Procedures p L1-L2 Decompression, T12-L3 Fusion, Spinal Cord Monitoring(Not Applicable) - Marc Pryor DO s L2 Hardware Removal, (Not Applicable) - Marc Pryor DO Hospital Course (1) Neurogenic claudication due to lumbar spinal stenosis: Patient is a pleasant 72-year-old male with history physical examination radiographic images consistent with the above-mentioned diagnosis. For this reason is brought to the operating room on 09/30/2022 and undergone a removal of hardware at L2 thoracolumbar decompression with fusion from T12-L3. This performed by Dr. Pryor under general anesthesia. Left the operating room with a SERGE drain Bernstein in place and transferred to PACU in stable condition. He was then transferred to the orthopedic floor. He was seen by physical therapy postop day 1 for ambulation and gait training. His pain was well controlled. He was placed on GI DVT prophylaxis. Throughout his hospital course his calves remained supple nontender his dressing clean dry and intact. On postop day #3 he was deemed safe for home discharge. We are going to change his dressing before he leaves regard to maintain his SERGE drain and remove it in the office on Friday. He was to avoid any bending or lifting. He is going to see us in the office in 2 weeks or sooner if he develops any increased pain drainage from the incision fevers or chills.
--- NOTE | 2022-10-03 08:28 | Hospitalist Progress Note ---
Date of Service October 03, 2022 Assessment & Plan (1) Neurogenic claudication due to lumbar spinal stenosis: Plan: Status post T12-L2 decompression and fusion 09/30 Pain control, PT/OT per primary team Encourage incentive spirometry (2) HTN (hypertension): Plan: BP elevated this a.m. was improved yesterday continue coreg, hctz, lisinopril possibly in setting of pain- improved (3) DM type 2 (diabetes mellitus, type 2): Plan: Pharmacy consulted for glycemic management appreciate their management BSG 170s (4) Permanent atrial fibrillation: Plan: Rate controlled on carvedilol On chronic AC (5) Sleep apnea: Plan: Pt brought his CPAP from home, knows settings Placed order for pt to use home CPAP machine while admitted (6) Diabetic peripheral neuropathy: (7) Dyslipidemia: (8) BPH (benign prostatic hyperplasia): (9) Protein S deficiency: Plan: - Pt on Xarelto as outpatient due to afib and hx DVT/Protein S deficiency - okay to resume tomorrow evening per discussion with Dr. Pryor ?Paraphimosis - patient concerned about foreskin abnormality following villaseñor catheter placement during surgery. No swelling, pain or difficultly urinating. Evaluated by urology and reassured no further concern Plan for discharge this afternoon. Thank you for this consultation. We will follow the patient with you during their hospital stay. You can reach a member of the [facility] Hospitalist Team 17/02 via hospitalist role on tiger text. A total of 40 minutes was spent with greater than 50% of that time personally viewing all current laboratory work and diagnostic imaging studies obtained in the ED. Additionally, I was able to view the patients past medication reconciliation and history with direct visualization in the patients chart. Included in the time above, a portion of that time was spent assessing the patient while discussing and collaborating with specialists, if necessary, and making medical decision making on treatment plan. All of the above was collaborated with Dr. Jones. Please see addendum for further details. Plan Admission and Anticipated Discharge Date Admission Date: September 30, 2022 Supervising Physician Co-Signing Physician Notes Pt was seen and examined. Agreed with Esther WATSON exam, assessment and plan. Status post T12-L2 decompression and fusion 09/30. No postop complication. Continue pain control. Continue incentive spiromerty. continue PT/OT. Fall precaution. MD Karen Subjective Patient was seen and examined in room 303 in follow up for lumbar decompression surgery. Feeling more comfortable today and ambulating without issue. Has chronic lower extremity pain but nothing acute. Tolerating diet without issue. Is passing gas but no bowel movement yet. Did mention concern that since Villaseñor catheter was placed preoperatively, patient's foreskin is not fully replaced. Denies any swelling or pain to penis or difficulty urinating. Denies fever, chills, lightheadedness, chest pain, palpitations, shortness of breath, abdominal pain, nausea, vomiting, dysuria or diarrhea. Review of Systems Review of Systems: At least ten systems reviewed and negative except as noted in the HPI. Physical Exam Physical Exam: Gen: WD/WN, NAD, sitting at side of bed, A&Ox3 HEENT: Normocephalic, atraumatic, conjunctivae moist, sclerae anicteric, mucous membranes moist Lung: Clear to Auscultation bilaterally, no wheezes/rales/rhonchi Heart: Regular rate, regular rhythm, no murmurs, rubs, or gallops Abdomen: Soft, NT, ND +BS x 4 : foreskin able to replace over glans penis. No erythema, swelling or pain noted Extremities: no edema Skin: Warm, no rash Results & Data Results & Data ([facility]) Vital Signs (Past 12 Hours) Vital Signs Temp Pulse Resp BP Pulse Ox O2 Del Method 10/03/22 08:12 36.8 C 92 H 18 127/81 94 Room Air 10/02/22 22:27 37.1 C 90 16 107/67 95 Room Air
[2022-10-03] MEDS: hydroCHLOROthiazide 25 MG TAB PO SCH (08:36)
[2022-10-03] MEDS: carvediloL 25 MG TAB PO SCH (08:36)
[2022-10-03] MEDS: lisinopril 20 MG TAB PO SCH (08:36)
[2022-10-03] MEDS: CHOLECALCIFEROL 1,000 UNITS 25 MCG TAB PO SCH (08:36)
[2022-10-03] MEDS: INSULIN ASPART PER UNIT CHARGE SC SCH ×2 (08:41→12:53)
--- NOTE | 2022-10-03 18:12 | Communication Note ---
Date of Service: October 03, 2022 Asked by hospitalist to evaluate patient due to concerns about foreskin abnormality following Bernstein catheter placement during surgery. Patient states he feels he is not able to fully pull back/replace his foreskin as he normally does. Patient evaluated at bedside with Dr. Sawant. No concern for paraphimosis. The foreskin was easily retracted and replaced without issue. No edema or erythema noted. No pain. Patient denied any urinary symptoms or issues. Worrisome signs/symptoms were reviewed. Patient verbalized understanding. Can follow-up with urology as needed.
== END 2022-10-03 15:00 | disposition home or self-care (01) | DRG 454 ==
LOC: ASU 07:38 → 3E 12:56